=== PATIENT | male | born 1965 | race Two or more races ===

== ENCOUNTER 2021-01-20 15:23 | Emergency (ER) | payer OTHER ==
[~2021-01-20] VITALS: Ht 162.6 cm; Wt 68.0 kg
[2021-01-20] MEDS ORDERED: LEVOTHYROXINE25 MCG PO (16:04)
[2021-01-20] MEDS ORDERED: CALAMINE TOP (20:58)
[2021-01-20] MEDS ORDERED: ZOVIRAX800 MG PO (20:58)
== END 2021-01-20 21:04 | disposition home or self-care (01) ==
LOC: ER 15:23
DX: B02.8 Zoster with other complications (principal)

== ENCOUNTER 2021-05-11 12:16 | Emergency (ER) | payer OTHER ==
[~2021-05-11] VITALS: Ht 162.6 cm; Wt 65.3 kg
[~2021-05-11 12:16] MED LIST: CALAMINE TOP; LEVOTHYROXINE25 MCG PO; ZOVIRAX800 MG PO
[2021-05-11] MEDS ORDERED: TUSSI PRES-B L480 ML PO (15:17)
[2021-05-11] MEDS ORDERED: ZITHROMAX500 MG PO (15:17)
== END 2021-05-11 15:52 | disposition home or self-care (01) ==
LOC: ER 12:16
DX: B34.9 Viral infection, unspecified (principal); Z03.818 Encounter for observation for suspected exposure to other biological agents ruled out

== ENCOUNTER 2021-06-27 16:37 | Emergency (ER) | payer OTHER ==
[~2021-06-27] VITALS: Ht 162.6 cm; Wt 68.0 kg
[~2021-06-27 16:37] MED LIST changes: +TUSSI PRES-B L480 ML PO; +ZITHROMAX500 MG PO
== END 2021-06-27 19:42 | disposition home or self-care (01) ==
LOC: ER 16:37
DX: U07.1 COVID-19 (principal); E03.9 Hypothyroidism, unspecified

== ENCOUNTER 2023-05-15 15:57 | Emergency (ER) | payer OTHER ==
[~2023-05-15] VITALS: Ht 165.1 cm; Wt 70.8 kg
[2023-05-15] MEDS ORDERED: TIROSINT50 MCG (16:15)
== END 2023-05-15 19:18 | disposition home or self-care (01) ==
LOC: ER 15:57
DX: R68.84 Jaw pain (principal)

== ENCOUNTER 2025-04-21 15:23 | Emergency (ER) | payer OTHER ==
[~2025-04-21] VITALS: Ht 162.6 cm; Wt 68.0 kg
[~2025-04-21 15:23] MED LIST changes: +TIROSINT50 MCG
[2025-04-21] MEDS ORDERED: CEFTRIAXONE SODIUM 1,000 MG VIAL IM STA (16:02)
[2025-04-21] MEDS ORDERED: DEXAMETHASONE SODIUM PHOSPHATE 4 MG/ML VIAL IM STA (16:02)
[2025-04-21] MEDS ORDERED: TOBRAMYCIN-DEXAM5 ML OP (16:09)
[2025-04-21] MEDS ORDERED: CEFTRIAXONE SODIUM 1,000 MG VIAL ONE (17:00)
[2025-04-21] MEDS ORDERED: DEXAMETHASONE SODIUM PHOSPHATE 4 MG/ML VIAL ONE (17:00)
[2025-04-21] MEDS ORDERED: LIDOCAINE HCL 1% 10ML VIAL ONE (17:01)
== END 2025-04-21 17:33 | disposition home or self-care (01) ==
LOC: ER 15:23
DX: H10.89 Other conjunctivitis (principal); E03.9 Hypothyroidism, unspecified